=== PATIENT | male | born 1980 | race Caucasian/White ===

== ENCOUNTER 2018-06-19 10:30 | Day surgery (SDC) | payer OTHER ==
[2018-06-18 11:33] VITALS: BMI 29.0
[2018-06-19] MEDS ORDERED: ROPIVACAINE HCL 0.5% 30ML VIAL ONE (12:00)
[2018-06-19] MEDS ORDERED: MIDAZOLAM HCL 2 MG/2 ML SINGLE DOSE VIAL ONE ×2 (12:02)
[2018-06-19] MEDS ORDERED: SUCCINYLCHOLINE CHLORIDE 200 MG/10 ML VIAL ONE ×2 (12:14)
[2018-06-19] MEDS ORDERED: PROPOFOL 20 ML ONE (12:14)
[2018-06-19] MEDS ORDERED: LIDOCAINE HCL/PF 2% SDV 5ML VIAL ONE (12:21)
[2018-06-19] MEDS ORDERED: ceFAZolin SODIUM 1 GM VIAL IVPB ONE (12:50)
[2018-06-19] MEDS ORDERED: ceFAZolin SODIUM 1 GM VIAL ONE (12:51)
[2018-06-19] MEDS ORDERED: ONDANSETRON 4 MG/2 ML VIAL IVPUSH PRN (15:03)
[2018-06-19] MEDS ORDERED: oxyCODONE HCL 5 MG TABLET PO PRN ×2 (15:03)
[2018-06-19] MEDS ORDERED: LACTATED RINGERS SOLUTION 1,000 ML IV SCH ×2 (15:15→17:15)
[2018-06-19] MEDS ORDERED: ACETAMINOPHEN 325 MG TABLET (FP) PO PRN (17:04)
--- NOTE | 2018-06-19 17:06 | OPR ---
Date of Procedure: 06/19/2018 Procedure: Left Shoulder- 1. Open treatment of acromioclavicular dislocation (Coracoclavicular ligament reconstruction with tibialis allograft) and distal clavicle resection (CPT 65495 ) Preoperative Diagnoses: 1. Acromioclavicular separation Type V Postoperative Diagnoses: 1. Acromioclavicular separation Type V Surgeon: Danyel Gabriel DO Assistants: Valdo Ovalles DO Anesthesia: General anesthesia, IV regional with interscalene nerve block Estimated Blood Loss: 150 mL Drains: None Total IV Fluids: Per anesthesia record Specimens: None Implants: Arthrex AC Dog Bone Button, (2) #2 FiberTape, Anterior Tibialis Allograft Complications: None Disposition: PACU Condition: Hemodynamically stable Indications: Tony De Santiago presented to us with left shoulder pain after a fall. His symptoms, signs, and imaging were consistent with the above noted diagnoses. He ultimately elected to proceed with surgical intervention after discussion of the risks, benefits, alternatives. We discussed risks including but not limited to, bleeding, pain, infection, scarring, damage to neurovascular structures, blood clots, pulmonary embolus, need for additional surgery, incomplete relief of pain, and incomplete return of function. He expressed understanding and wished to proceed. He underwent preoperative medical evaluation clearance and optimization prior to surgery. Procedure Details: He was identified in the preoperative area. The left shoulder was marked as the operative site and consent was completed and confirmed. He was later transferred to the operating room and placed in supine position the operating room. General anesthesia was induced without difficulty. He was repositioned into beach chair with all bony prominences appropriately padded. The neck was in neutral alignment. A surgical time-out was performed identifying the correct patient, procedure, and site. Antibiotics were given within 1 hour prior to surgical incision. The upper extremity was prepped and draped in standard sterile fashion. Open treatment of acromioclavicular dislocation (Coracoclavicular ligament reconstruction with tibialis allograft) and distal clavicle resection: We began the procedure by making a saber incision from the posterior aspect of the clavicle to the superior border of the coracoid process. The incision was take down to the deltotrapezial fascia which was noted to be torn. Full thickness flaps of deltotrapezial fascia were then elevated off of the anterior and posterior aspects of the distal clavicle. Anteriorly the coracoid process base was identified. We developed a path medially along the coracoid, releasing the pectoralis minor partially. The coracoid tissue was bluntly dissected with an elevator around the inferior aspect. We then similarly developed the subperiosteal tissues of the lateral side of the coracoid to generate a path for our allograft tendon. We used a curved clamp to develop this space. After we developed this space, we turned our attention to preparation of the tendon graft. The tendon graft was anterior tibialis allograft. We prepared this by removing the creep with a tensioning device and prepared the graft by then passing #2 fiber wire through both ends of the graft to reinforce it. The middle aspect of the tendon graft was tubularized it allow for passage of the tendon graft around the coracoid and around the clavicle. After we prepared the anterior tibialis allograft, we turned our attention to clavicular reduction and fixation with an Arthrex AC Dog Bone button technique. We first resected the distal end of the clavicle removing ~1cm of the distal end with a sagittal saw. We rasped the ends to smooth them. We placed an AC guide under the coracoid base through an accessory anterolateral portal incision. This allowed us to line up the clavicle drill hole with the center of the coracoid base. A 3 mm drill bit was used to drill from the clavicle down, protecting the deep structures. We did not drill through the coracoid. A curved coracoid passing device was passed around the coracoid base from medial to lateral taking care to stay on bone the entire time. A nitinol loop was retrieved and (2) #2 Fibertapes and the tibialis anterior graft were shuttled around the clavicle. One #2 FiberTape was shuttled through the coracoid drill tunnel and were inserted into a DogBone button. We tensioned the button on the superior aspect of the clavicle reducing the clavicle to the acromion. Reduction was confirmed with fluoroscopy. The limbs from the other #2 FiberTape and graft were passed anterior and posterior to the clavicle. The second FiberTape and allograft was then tied over the clavicle. Interrupted stiches using #2 FiberWire were used in the knot to maintain the tension of the graft. This established good fixation of our tendon graft. We then closed the deltotrapezial flap that was previously developed with #2 Ethibond over our allograft ligament reconstruction reestablishing the deltotrapezial fascia over the distal aspect of the clavicle. This had excellent fixation and greatly improved the contour of the patient's shoulder. We confirmed our reduction with fluoroscopy. We thoroughly irrigated the wound and closed in a layered fashion with 0 Vicryl, 2-0 Vicryl, 3-0 Monocryl followed by Dermabond. The portal incision was closed with 3-0 nylon. Post-operative Details: I spoke with the patient and family regarding the operation after surgery. Attestation of Chain Maker Hand: Dr. Valdo Ovalles acted as the certified surgical tech/first assistant. There was no qualified resident or physician talent assistant available to do so. Postoperative rehabilitation: Open AC Joint Stabilization Rehabilitation Protocol. He will remain in a shoulder brace for 6 weeks. Pendulums and distal range of motion exercises okay. Formal physical therapy to begin at 2 week.
[2018-06-19 18:48] VITALS: TEMP 98.2
[2018-06-19 18:51] VITALS: BP 132/65; PULSE 68
== END 2018-06-19 18:45 | disposition home or self-care (01) ==
LOC: JASU-SURG 10:30
PROVIDERS: ATTEND Orthopaedic Surgery
PROC: 0RSH0ZZ Reposition Left Acromioclavicular Joint, Open Approach (ICD-10-PCS; principal; 2018-06-19 12:35)
DX: S43.102A Unspecified dislocation of left acromioclavicular joint, initial encounter (principal); W19.XXXA Unspecified fall, initial encounter; Y93.9 Activity, unspecified; Y92.9 Unspecified place or not applicable; Y99.9 Unspecified external cause status
CPT/HCPCS: 73030-TC-LT-FY; 76000-TC-FY; 94760

== ENCOUNTER 2020-12-26 06:22 | Day surgery (SDC) | payer OTHER ==
[2020-12-26 06:39] VITALS: BMI 28.5
[2020-12-26] MEDS ORDERED: ACETAMINOPHEN 1000 MG/100 ML VIAL IVPB ONE ×2 (07:29→14:40)
[2020-12-26] MEDS ORDERED: ACETAMINOPHEN INJECTION 100 ML IVPB ONE (07:48)
[2020-12-26] MEDS ORDERED: DEXAMETHASONE SOD PHOSPHATE 10 MG/1 ML VIAL ONE (09:49)
[2020-12-26] MEDS ORDERED: MIDAZOLAM HCL 2 MG/2 ML SINGLE DOSE VIAL ONE (09:50)
[2020-12-26] MEDS ORDERED: ROPIVACAINE HCL 0.5% 30ML VIAL ONE (09:50)
[2020-12-26] MEDS ORDERED: SUCCINYLCHOLINE CHLORIDE 200 MG/10 ML SYRINGE ONE (10:14)
[2020-12-26] MEDS ORDERED: ROCURONIUM BROMIDE 50 MG/5 ML SYRINGE ONE ×2 (10:14→12:35)
[2020-12-26] MEDS ORDERED: PROPOFOL 20 ML ONE ×2 (10:14)
[2020-12-26] MEDS ORDERED: DEXAMETHASONE SOD PHOSPHATE 4 MG/1 ML VIAL ONE ×2 (10:54→13:49)
[2020-12-26] MEDS ORDERED: TRANEXAMIC ACID 1000 MG/10 ML VIAL ONE ×2 (10:54→13:51)
[2020-12-26] MEDS ORDERED: ceFAZolin SODIUM 1 GM VIAL ONE (10:54)
[2020-12-26] MEDS ORDERED: ONDANSETRON 4 MG/2 ML VIAL ONE ×2 (10:54→13:49)
[2020-12-26] MEDS ORDERED: VANCOMYCIN 1,000 MG VIAL (RESTRICTED TO ID ONLY) ONE ×2 (11:28→13:35)
[2020-12-26] MEDS ORDERED: oxyCODONE HCL 5 MG TABLET PO PRN (14:39)
[2020-12-26] MEDS ORDERED: LACTATED RINGERS SOLUTION 1,000 ML IV SCH (14:45)
[2020-12-26] MEDS ORDERED: CEFAZOLIN 1 GM in DEXTROSE 5%-WATER - 50 ML IVPB ONE (16:30)
[2020-12-26 16:39] VITALS: BP 130/76; PULSE 70; TEMP 97.9
== END 2020-12-26 17:59 | disposition home or self-care (01) ==
LOC: FER 06:22 → FASUSAT 16:56
PROVIDERS: ATTEND Orthopaedic Surgery
PROC: 0RSH0ZZ Reposition Left Acromioclavicular Joint, Open Approach (ICD-10-PCS; 2020-12-26)
PROC: 0PPB04Z Removal of Internal Fixation Device from Left Clavicle, Open Approach (ICD-10-PCS; 2020-12-26)
PROC: 0PSB04Z Reposition Left Clavicle with Internal Fixation Device, Open Approach (ICD-10-PCS; principal; 2020-12-26 11:29)
DX: S42.032A Displaced fracture of lateral end of left clavicle, initial encounter for closed fracture (principal); S43.412A Sprain of left coracohumeral (ligament), initial encounter; T84.119A Breakdown (mechanical) of internal fixation device of unspecified bone of limb, initial encounter; W19.XXXA Unspecified fall, initial encounter; Y93.9 Activity, unspecified; Y92.9 Unspecified place or not applicable; Y79.3 Surgical instruments, materials and orthopedic devices (including sutures) associated with adverse incidents
CPT/HCPCS: 20680; 23515; 23550; C1713; 73000-TC-LT-FY; 94760; 99285-25; J0131; J1100